=== PATIENT | male | born 1965 | race Caucasian/White ===

== ENCOUNTER 2023-04-29 02:19 | Emergency (ER) | payer OTHER ==
[~2023-04-29] VITALS: Ht 175.2 cm; Wt 81.6 kg
== END 2023-04-29 10:10 | disposition short-term general hospital (02) ==
LOC: ED 02:19
DX: S82.142A Displaced bicondylar fracture of left tibia, initial encounter for closed fracture (principal); S82.832A Other fracture of upper and lower end of left fibula, initial encounter for closed fracture; Y93.39 Activity, other involving climbing, rappelling and jumping off; Y92.89 Other specified places as the place of occurrence of the external cause; Y99.8 Other external cause status